=== PATIENT | female | born 2000 | race Caucasian/White ===

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

== ENCOUNTER 2022-06-05 06:00 | Inpatient (IN) | payer OTHER ==
[~2022-06-05] VITALS: Ht 170.2 cm; Wt 127.7 kg
[2022-06-05] MEDS ORDERED: PRENATAL TABLE1 EAC2 PO (06:31)
[2022-06-05 06:52] LABS: BASOPHILS ABSOLUTE AUTO 0.03 K/mm3 (0.00-0.23); BASOPHILS PERCENT AUTO 0 % (0-2); EOSINOPHILS ABSOLUTE AUTO 0.08 K/mm3 (0.00-0.68); EOSINOPHILS PERCENT AUTO 1 % (0-6); Hematocrit 38.2 % (33.0-51.0); Hemoglobin 13.2 g/dL (11.5-16.0); IMMATURE GRAN ABSOLUTE AUTO 0.02 K/mm3 (0.00-0.10); IMMATURE GRAN PERCENT AUTO 0 % (0-1); LYMPHOCYTES ABSOLUTE AUTO 2.47 K/mm3 (0.84-5.20); LYMPHOCYTES PERCENT AUTO 23 % (21-46); MONOCYTES ABSOLUTE AUTO 0.48 K/mm3 (0.16-1.47); MONOCYTES PERCENT AUTO 5 % (4-13); Mean Corpuscular HGB 29.9 pg (26.0-34.0); Mean Corpuscular HGB Conc 34.6 g/dL (31.5-36.5); Mean Corpuscular Volume 87 fL (80-100); Mean Platelet Volume 11.8 fL (9.1-12.4); NEUTROPHILS ABSOLUTE AUTO 7.49 K/mm3 (1.96-9.15); NEUTROPHILS PERCENT AUTO 71 % (41-73); Platelet Count 228 K/mm3 (150-400); RDW Coefficient Variation 12.3 % (11.7-14.2); RDW Standard Deviation 39.3 fL (35.1-46.3); Red Blood Cell Count 4.41 M/mm3 (3.80-5.20); White Blood Cell Count 10.57 K/mm3 (4.00-11.30)
[2022-06-05 13:34] LABS: Source, Urine Foley catheter
[2022-06-05 13:38] LABS: Appearance, Urine Cloudy (Clear); Bilirubin, Urine Neg (Neg); Blood, Urine 2+ (Neg); Color, Urine Yellow (P-Yellow); Glucose Qualitative, Urine Neg (Neg); Ketones, Urine Neg (Neg); Leukocyte Esterase, Urine Neg (Neg); Nitrite, Urine Neg (Neg); Protein, Urine Neg (Neg); Specific Gravity, Urine 1.015 (1.003-1.022); Urobilinogen, Urine NORM (Normal)
[2022-06-05 13:56] LABS: White Blood Cells, Urine 0-2 /hpf (0-5)
[2022-06-05 13:57] LABS: Amorphous Heavy (0-Heavy); Bacteria Few /hpf; Mucus Light (0-Heavy); Squamous Epithelial Cells Few /hpf (Few)
[2022-06-06] MEDS ORDERED: IBUP800 PO (07:45)
[2022-06-06 10:33] LABS: Hematocrit 39.6 % (33.0-51.0); Hemoglobin 13.4 g/dL (11.5-16.0); Mean Corpuscular HGB 30.2 pg (26.0-34.0); Mean Corpuscular HGB Conc 33.8 g/dL (31.5-36.5); Mean Corpuscular Volume 89 fL (80-100); Mean Platelet Volume 11.1 fL (9.1-12.4); Platelet Count 235 K/mm3 (150-400); RDW Coefficient Variation 12.5 % (11.7-14.2); Red Blood Cell Count 4.43 M/mm3 (3.80-5.20); White Blood Cell Count 17.75 K/mm3 (4.00-11.30)
--- NOTE | 2022-06-06 22:17 | NUR ---
Went over discharge instructions with patient and her mother. Also discussed post- depression in detail. Pt will call MILEY or Mimi Rodriguez if she has further questions. She is already scheduled for a follow-up with Mimi. Pt reports she is excited to go home and she lives with her mother, so she feels she has a lot of support from her. Walked patient and to her mother's car.
== END 2022-06-06 22:00 | disposition home or self-care (01) | DRG 807 ==
LOC: BC 06:00 → OBS 06:00 → BC 06:09
PROVIDERS: ADMIT Advanced Practice Midwife
PROC: 10E0XZZ Delivery of Products of Conception, External Approach (ICD-10-PCS; principal; 2022-06-05)
PROC: 3E0R3BZ Introduction of Anesthetic Agent into Spinal Canal, Percutaneous Approach (ICD-10-PCS; 2022-06-05)
PROC: 00HU33Z Insertion of Infusion Device into Spinal Canal, Percutaneous Approach (ICD-10-PCS; 2022-06-05)
DX: O42.02 Full-term premature rupture of membranes, onset of labor within 24 hours of rupture (principal); Z37.0 Single live birth; O99.824 Streptococcus B carrier state complicating childbirth; O77.0 Labor and delivery complicated by meconium in amniotic fluid; O76 Abnormality in fetal heart rate and rhythm complicating labor and delivery; O71.89 Other specified obstetric trauma; Z98.890 Other specified postprocedural states; Z3A.39 39 weeks gestation of pregnancy; Z79.899 Other long term (current) drug therapy; Z79.2 Long term (current) use of antibiotics; Z91.09 Other allergy status, other than to drugs and biological substances
CPT/HCPCS: 36415; 51702; 81001; 85025; 85027; 86850; 86900; 86901; A9270; J0290; J1885; J2210; J2590; J7120

== ENCOUNTER → 2024-07-21 | Outpatient (CLI) | payer OTHER ==
[~2024-07-21] MED LIST changes: +IBUP800 PO; +PRENATAL TABLE1 EAC2 PO
[2024-07-21 14:43] LABS: BASOPHILS ABSOLUTE AUTO 0.03 K/mm3 (0.00-0.23); BASOPHILS PERCENT AUTO 0 % (0-2); EOSINOPHILS ABSOLUTE AUTO 0.19 K/mm3 (0.00-0.68); EOSINOPHILS PERCENT AUTO 2 % (0-6); Hematocrit 36.3 % (33.0-51.0); Hemoglobin 12.2 g/dL (11.5-16.0); IMMATURE GRAN ABSOLUTE AUTO 0.04 K/mm3 (0.00-0.10); IMMATURE GRAN PERCENT AUTO 0 % (0-1); LYMPHOCYTES ABSOLUTE AUTO 1.89 K/mm3 (0.84-5.20); LYMPHOCYTES PERCENT AUTO 18 % (21-46); MONOCYTES ABSOLUTE AUTO 0.54 K/mm3 (0.16-1.47); MONOCYTES PERCENT AUTO 5 % (4-13); Mean Corpuscular HGB 30.9 pg (26.0-34.0); Mean Corpuscular HGB Conc 33.6 g/dL (31.5-36.5); Mean Corpuscular Volume 92 fL (80-100); Mean Platelet Volume 10.7 fL (9.1-12.4); NEUTROPHILS PERCENT AUTO 75 % (41-73); Platelet Count 223 K/mm3 (150-400); RDW Coefficient Variation 12.8 % (11.7-14.2); RDW Standard Deviation 43.1 fL (35.1-46.3); Red Blood Cell Count 3.95 M/mm3 (3.80-5.20); White Blood Cell Count 10.69 K/mm3 (4.00-11.30)
== END | disposition home or self-care (01) ==
LOC: LAB SHORT 12:58 → LAB 12:58
PROVIDERS: Advanced Practice Midwife
DX: Z34.92 Encounter for supervision of normal pregnancy, unspecified, second trimester (principal)
CPT/HCPCS: 82950; 85025

== ENCOUNTER → 2024-07-28 | Outpatient (CLI) | payer OTHER ==
[2024-07-28 16:38] LABS: Bacterial Vaginosis PCR Negative (NEGATIVE); Candida glabrata-krusei, PCR NOT DETECTED (NOT DETECT)
[2024-07-28 16:48] LABS: Candida Group, PCR DETECTED (NOT DETECT)
[2024-07-28 17:02] LABS: Chlamydia Trachomatis Urine NOT DETECTED (NOT DETECT); Neisseria Gonorrhoea Urine NOT DETECTED (NOT DETECT)
== END | disposition home or self-care (01) ==
LOC: LAB SHORT 12:45 → LAB 12:45
PROVIDERS: Advanced Practice Midwife
DX: N89.8 Other specified noninflammatory disorders of vagina (principal)
CPT/HCPCS: 81515; 87491; 87591

== ENCOUNTER 2024-10-14 19:58 | Inpatient (IN) | payer OTHER ==
[~2024-10-14] VITALS: Ht 170.2 cm; Wt 134.5 kg
[2024-10-14] MEDS ORDERED: Tranexamic Acid 100 ML IV SCH (20:10)
[2024-10-14] MEDS ORDERED: Ondansetron HCl 2 MG / ML 2ML Vial IV PRN (20:10)
[2024-10-14] MEDS ORDERED: Misoprostol 200 MCG Tab BC PRN (20:10)
[2024-10-14] MEDS ORDERED: FentaNYL 2mcg/ml-Bup 0.1% Epd 250 ML EPI PRN (20:10)
[2024-10-14] MEDS ORDERED: Lactated Ringer's 1,000 ML IV PRN ×3 (20:10→20:15)
[2024-10-14] MEDS ORDERED: Oxytocin 10 Unit / ML Vial IM PRN (20:10)
[2024-10-14] MEDS ORDERED: ePHEDrine Sulfate 50 MG/ML 1ML Injection XX PRN (20:10)
[2024-10-14] MEDS ORDERED: OXYTOCIN/RINGER'S LACTATE 500 ML IV PRN (20:10)
[2024-10-14] MEDS ORDERED: Misoprostol 200 MCG Tab PR PRN (20:10)
[2024-10-14] MEDS ORDERED: Carboprost Tromethamine 250 MCG/ML 1ML Amp IM PRN (20:10)
[2024-10-14] MEDS ORDERED: Methylergonovine Maleate 0.2MG / ML 1ML Amp IM PRN (20:10)
[2024-10-14] MEDS ORDERED: Acetaminophen 500 MG Tab PO PRN (20:10)
[2024-10-14] MEDS ORDERED: Calcium Carbonate 500 MG Tab Chew PO PRN (20:15)
[2024-10-14] MEDS ORDERED: FentaNYL Citrate 50 MCG/ML 2 ML Injection IV PRN (20:20)
[2024-10-14] MEDS ORDERED: Misoprostol 25 MCG Tab VAG SCH (20:20)
[2024-10-14 20:25] VITALS: BP 110/55
[2024-10-14] MEDS ORDERED: ACYC400 PO (20:37)
[2024-10-14 20:53] LABS: BASOPHILS ABSOLUTE AUTO 0.03 K/mm3 (0.00-0.23); BASOPHILS PERCENT AUTO 0 % (0-2); EOSINOPHILS ABSOLUTE AUTO 0.11 K/mm3 (0.00-0.68); EOSINOPHILS PERCENT AUTO 1 % (0-6); Hematocrit 35.2 % (33.0-51.0); Hemoglobin 12.3 g/dL (11.5-16.0); IMMATURE GRAN ABSOLUTE AUTO 0.04 K/mm3 (0.00-0.10); IMMATURE GRAN PERCENT AUTO 0 % (0-1); LYMPHOCYTES ABSOLUTE AUTO 2.52 K/mm3 (0.84-5.20); LYMPHOCYTES PERCENT AUTO 22 % (21-46); MONOCYTES ABSOLUTE AUTO 0.71 K/mm3 (0.16-1.47); MONOCYTES PERCENT AUTO 6 % (4-13); Mean Corpuscular HGB 31.1 pg (26.0-34.0); Mean Corpuscular HGB Conc 34.9 g/dL (31.5-36.5); Mean Corpuscular Volume 89 fL (80-100); Mean Platelet Volume 10.4 fL (9.1-12.4); NEUTROPHILS ABSOLUTE AUTO 8.27 K/mm3 (1.96-9.15); NEUTROPHILS PERCENT AUTO 71 % (41-73); Platelet Count 197 K/mm3 (150-400); RDW Coefficient Variation 13.1 % (11.7-14.2); RDW Standard Deviation 42.9 fL (35.1-46.3); Red Blood Cell Count 3.96 M/mm3 (3.80-5.20); White Blood Cell Count 11.68 K/mm3 (4.00-11.30)
[2024-10-14] MEDS ORDERED: Zolpidem Tartrate 5 MG Tab PO PRN (21:25)
[2024-10-14] MEDS ORDERED: DiphenhydrAMINE HCl 50 MG Cap PO PRN (21:30)
[2024-10-14] MEDS ORDERED: Acyclovir 400 MG Tab PO SCH (22:00)
[2024-10-14] MEDS ORDERED: OXYTOCIN/RINGER'S LACTATE 500 ML IV SCH (22:15)
[2024-10-14 23:40] VITALS: BP 111/54
[2024-10-15] VITALS (12 sets, daily range): BP systolic 103–129; BP diastolic 50–76
== END 2024-10-15 18:00 | disposition home or self-care (01) | DRG 833 ==
LOC: BC 19:58 → OBS 19:58 → BC 20:01 → OBS 20:12 → BC 20:13
PROVIDERS: ADMIT Advanced Practice Midwife
DX: O99.820 Streptococcus B carrier state complicating pregnancy (principal); Z3A.39 39 weeks gestation of pregnancy
CPT/HCPCS: 36415; 85025; 86850; 86900; 86901; 86923; A9270; J7120

== ENCOUNTER 2024-10-19 19:02 | Inpatient (IN) | payer OTHER ==
[~2024-10-19] VITALS: Ht 172.7 cm; Wt 134.5 kg
[2024-10-19] VITALS (10 sets, daily range): BP systolic 96–139; BP diastolic 51–88
[~2024-10-19 19:02] MED LIST changes: +ACYC400 PO
[2024-10-19] MEDS ORDERED: Methylergonovine Maleate 0.2MG / ML 1ML Amp IM PRN (19:55)
[2024-10-19] MEDS ORDERED: Carboprost Tromethamine 250 MCG/ML 1ML Amp IM PRN (19:55)
[2024-10-19] MEDS ORDERED: Ondansetron HCl 2 MG / ML 2ML Vial IV PRN (19:55)
[2024-10-19] MEDS ORDERED: ePHEDrine Sulfate 50 MG/ML 1ML Injection XX PRN (19:55)
[2024-10-19] MEDS ORDERED: Acetaminophen 500 MG Tab PO PRN (19:55)
[2024-10-19] MEDS ORDERED: FentaNYL 2mcg/ml-Bup 0.1% Epd 250 ML EPI PRN (19:55)
[2024-10-19] MEDS ORDERED: Lactated Ringer's 1,000 ML IV PRN ×3 (19:55→20:00)
[2024-10-19] MEDS ORDERED: Tranexamic Acid 1,000 MG in NS 100 ML IV SCH (19:55)
[2024-10-19] MEDS ORDERED: Lactated Ringer's 1,000 ML IV SCH (19:55)
[2024-10-19] MEDS ORDERED: Misoprostol 200 MCG Tab BC PRN (19:55)
[2024-10-19] MEDS ORDERED: Misoprostol 200 MCG Tab PR PRN (19:55)
[2024-10-19] MEDS ORDERED: OXYTOCIN/RINGER'S LACTATE 500 ML IV SCH (19:55)
[2024-10-19] MEDS ORDERED: Oxytocin 10 Unit / ML Vial IM PRN (19:55)
[2024-10-19] MEDS ORDERED: OXYTOCIN/RINGER'S LACTATE 500 ML IV PRN (19:55)
[2024-10-19] MEDS ORDERED: Misoprostol 25 MCG Tab VAG PRN (19:55)
[2024-10-19] MEDS ORDERED: Calcium Carbonate 500 MG Tab Chew PO PRN (20:00)
[2024-10-19 20:16] LABS: BASOPHILS ABSOLUTE AUTO 0.02 K/mm3 (0.00-0.23); BASOPHILS PERCENT AUTO 0 % (0-2); EOSINOPHILS ABSOLUTE AUTO 0.19 K/mm3 (0.00-0.68); EOSINOPHILS PERCENT AUTO 2 % (0-6); Hematocrit 38.1 % (33.0-51.0); IMMATURE GRAN ABSOLUTE AUTO 0.04 K/mm3 (0.00-0.10); IMMATURE GRAN PERCENT AUTO 0 % (0-1); LYMPHOCYTES ABSOLUTE AUTO 2.17 K/mm3 (0.84-5.20); LYMPHOCYTES PERCENT AUTO 22 % (21-46); MONOCYTES ABSOLUTE AUTO 0.62 K/mm3 (0.16-1.47); MONOCYTES PERCENT AUTO 6 % (4-13); Mean Corpuscular HGB 30.9 pg (26.0-34.0); Mean Corpuscular HGB Conc 34.1 g/dL (31.5-36.5); Mean Corpuscular Volume 91 fL (80-100); Mean Platelet Volume 10.6 fL (9.1-12.4); NEUTROPHILS ABSOLUTE AUTO 6.87 K/mm3 (1.96-9.15); NEUTROPHILS PERCENT AUTO 69 % (41-73); Platelet Count 204 K/mm3 (150-400); RDW Coefficient Variation 12.9 % (11.7-14.2); RDW Standard Deviation 42.5 fL (35.1-46.3); Red Blood Cell Count 4.21 M/mm3 (3.80-5.20); White Blood Cell Count 9.91 K/mm3 (4.00-11.30)
[2024-10-19] MEDS ORDERED: FentaNYL Citrate 50 MCG/ML 2 ML Injection IV PRN (23:55)
[2024-10-20] VITALS (47 sets, daily range): BP systolic 95–145; BP diastolic 50–92
[2024-10-20] MEDS ORDERED: Penicillin G Potassium 5,000,000 UNITS in NS 250 ML IV ONE (01:00)
[2024-10-20] MEDS ORDERED: Penicillin G Potassium 2,500,000 UNITS in Dextrose 5% 100 ML IV SCH (05:00)
[2024-10-20] MEDS ORDERED: Lactated Ringer's 1,000 ML IV SCH (11:30)
[2024-10-20] MEDS ORDERED: OXYTOCIN/RINGER'S LACTATE 500 ML IV SCH (11:30)
[2024-10-20 14:30] LABS: BASOPHILS ABSOLUTE AUTO 0.02 K/mm3 (0.00-0.23); BASOPHILS PERCENT AUTO 0 % (0-2); EOSINOPHILS ABSOLUTE AUTO 0.06 K/mm3 (0.00-0.68); EOSINOPHILS PERCENT AUTO 1 % (0-6); Hematocrit 36.2 % (33.0-51.0); Hemoglobin 12.2 g/dL (11.5-16.0); IMMATURE GRAN ABSOLUTE AUTO 0.04 K/mm3 (0.00-0.10); IMMATURE GRAN PERCENT AUTO 0 % (0-1); LYMPHOCYTES ABSOLUTE AUTO 1.53 K/mm3 (0.84-5.20); LYMPHOCYTES PERCENT AUTO 12 % (21-46); MONOCYTES ABSOLUTE AUTO 0.58 K/mm3 (0.16-1.47); MONOCYTES PERCENT AUTO 5 % (4-13); Mean Corpuscular HGB 30.6 pg (26.0-34.0); Mean Corpuscular HGB Conc 33.7 g/dL (31.5-36.5); Mean Corpuscular Volume 91 fL (80-100); Mean Platelet Volume 10.2 fL (9.1-12.4); NEUTROPHILS ABSOLUTE AUTO 10.65 K/mm3 (1.96-9.15); NEUTROPHILS PERCENT AUTO 83 % (41-73); Platelet Count 177 K/mm3 (150-400); RDW Coefficient Variation 12.9 % (11.7-14.2); RDW Standard Deviation 42.5 fL (35.1-46.3); Red Blood Cell Count 3.99 M/mm3 (3.80-5.20); White Blood Cell Count 12.88 K/mm3 (4.00-11.30)
[2024-10-20] MEDS ORDERED: Docusate Sodium 100 MG Cap PO PRN (15:55)
[2024-10-20] MEDS ORDERED: Benzocaine Topical Anesthetic Spray 60GM TOP PRN (15:55)
[2024-10-20] MEDS ORDERED: Witch Hazel/Glycerin PADS TOP PRN (15:55)
[2024-10-20] MEDS ORDERED: Ibuprofen 400 MG Tab PO PRN (15:55)
[2024-10-20] MEDS ORDERED: Lanolin Cream TOP PRN (15:55)
[2024-10-20] MEDS ORDERED: Ketorolac Tromethamine 30mg Vial IV PRN (15:55)
--- NOTE | 2024-10-20 17:33 | NUR ---
10/20/24 0830 david called and given update on patients continued vaginal bleeding and RN noted a 2 cm clot after her cervical exam which was 4.5cm 100% and -3. periarea was cleaned prior to exam and then again after. 10/20/24 1351 updated David that patient had a few more moderate sized clots that weighed 20cc, with a little more that was wiped with baby wipes. David reviewed strip and stateed that the baby looks great adn to keep watching and weighing any bleeding. 10/20/24 1354 this RN messaged David that I was hesitant to turn up the pitocin due to the patients continued bleeding, and I asked if Dr Lima was aware of patients bleeding. She says that she had messaged her yet had not heard back because she had been communicating with me. 10/20/24 1402 per David: order CBC and check her cervix before assessing to increase pitocin, and if she was changing her cervix, then to leave the Pitocin, if shes unchanged, continue to increase per protocol. 10/20/24 1430 call to David, left message. When she returned to call, I let her know the lab results and that the patients vaginal bleeding was about the same. 10/20/24 1445 David here and plans to place IUPC to monitor strenth of contractions. AROM of forebag, clear fluid. IUPC placed after 2 attempts, and then patient was noted to be 10cm dialated. Clots that came out with VE were weighed and were 133cc and 34cc.
[2024-10-20] MEDS ORDERED: ACET500 PO (19:52)
[2024-10-20] MEDS ORDERED: IBUP800 PO (19:52)
[2024-10-21 03:28] VITALS: BP 103/53
[2024-10-21 05:50] LABS: Hematocrit 34.9 % (33.0-51.0); Hemoglobin 11.7 g/dL (11.5-16.0); Mean Corpuscular HGB 30.4 pg (26.0-34.0); Mean Corpuscular HGB Conc 33.5 g/dL (31.5-36.5); Mean Corpuscular Volume 91 fL (80-100); Mean Platelet Volume 10.6 fL (9.1-12.4); Platelet Count 180 K/mm3 (150-400); RDW Coefficient Variation 12.9 % (11.7-14.2); RDW Standard Deviation 42.3 fL (35.1-46.3); Red Blood Cell Count 3.85 M/mm3 (3.80-5.20); White Blood Cell Count 11.12 K/mm3 (4.00-11.30)
[2024-10-21 08:02] VITALS: BP 141/78
[2024-10-21] MEDS ORDERED: Prenatal Vit/FE Fumarate/FA 1 Tab PO SCH (09:00)
[2024-10-21 12:23] VITALS: BP 155/68
[2024-10-21 13:17] VITALS: BP 116/75
[2024-10-21 15:45] VITALS: BP 115/67
[2024-10-23 17:39] LABS: HEPATITIS C AB CIA INTERP Negative (Negative); HEPATITIS C ANTIBODY CIA INDEX 0.05 IV
== END 2024-10-21 16:40 | disposition home or self-care (01) | DRG 806 ==
LOC: OBS 19:02 → BC 19:03 → OBS 19:12 → BC 19:14
PROVIDERS: ADMIT Advanced Practice Midwife
PROC: 10E0XZZ Delivery of Products of Conception, External Approach (ICD-10-PCS; principal; 2024-10-20)
PROC: 10H07YZ Insertion of Other Device into Products of Conception, Via Natural or Artificial Opening (ICD-10-PCS; 2024-10-20)
PROC: 3E0P7VZ Introduction of Hormone into Female Reproductive, Via Natural or Artificial Opening (ICD-10-PCS; 2024-10-20)
PROC: 0HQ9XZZ Repair Perineum Skin, External Approach (ICD-10-PCS; 2024-10-20)
DX: O48.0 Post-term pregnancy (principal); O98.32 Other infections with a predominantly sexual mode of transmission complicating childbirth; O42.92 Full-term premature rupture of membranes, unspecified as to length of time between rupture and onset of labor; O99.824 Streptococcus B carrier state complicating childbirth; O70.0 First degree perineal laceration during delivery; A60.09 Herpesviral infection of other urogenital tract; Z37.0 Single live birth; Z3A.40 40 weeks gestation of pregnancy
CPT/HCPCS: 36415; 51702; 59025; 81003; 85025; 85027; 86803; 86850; 86900; 86901; 86923; 87210; 99214; A9270; J2540; J3010; J7050; J7120